=== PATIENT | male | born 1990 | race Hispanic/Latino ===

== ENCOUNTER 2019-07-14 21:05 | Emergency (ER) | payer SELFPAY ==
[2019-07-14 23:12] LABS: Basophils % (Auto) 0.9 % (0.0-1.8); Eosinophils % (Auto) 2.4 % (0.0-4.3); Lymphocytes % (Auto) 25.6 % (13.4-35.0); Monocytes % (Auto) 7.4 % (0.0-7.3)
[2019-07-14 23:28] LABS: BUN/Creatinine Ratio 12; Blood Urea Nitrogen 13 mg/dL (9-20); Calcium 9.5 mg/dL (8.4-10.2); Hemolysis Index 33
[2019-07-14 23:29] LABS: Basophils # (Auto) 0.1 K/mm3 (0.0-0.1); Eosinophils # (Auto) 0.3 K/mm3 (0.0-0.4); Hematocrit 44.7 % (35.5-45.6); Hemoglobin 14.7 gm/dl (11.8-15.2); Lymphocytes # (Auto) 2.7 K/mm3 (1.2-5.4); Mean Corpuscular HGB Conc 33 % (32-34); Mean Corpuscular Volume 84 fl (84-94); Monocytes # (Auto) 0.8 K/mm3 (0.0-0.8); Platelet Count 195 K/mm3 (140-440); Red Blood Count 5.31 M/mm3 (3.65-5.03); Red Cell Distribution Width 13.3 % (13.2-15.2)
[2019-07-15 00:18] LABS: Mucus,Urine 2+ /HPF
[2019-07-15 00:24] LABS: Bilirubin,Urine NEG (Negative); Blood,Urine NEG (Negative); Color,Urine Yellow (Yellow); Protein,Urine <15 mg/dL mg/dL (Negative); Urobilinogen,Urine < 2.0 mg/dL (<2.0)
[2019-07-15 00:25] LABS: Amphetamine Screen,Urine PRESUMPTIVE NEGATIVE; Benzodiazepines Screen,Urine PRESUMPTIVE NEGATIVE; Cocaine Screen,Urine PRESUMPTIVE NEGATIVE; Methadone Screen,Urine PRESUMPTIVE NEGATIVE; Opiate Screen,Urine PRESUMPTIVE NEGATIVE
[2019-07-15 00:58] LABS: Cannabinoid Screen,Urine PRESUMPTIVE POSITIVE
--- NOTE | 2019-07-15 01:34 | Emergency Department Report ---
ED Psych HPI - General Chief Complaint: Psych Stated Complaint: MH EVALUATION Time Seen by Provider: 07/14/19 23:27 Source: patient Mode of arrival: Ambulatory - History of Present Illness Initial Comments: Patient is a 29-year-old male who is presenting with suicidal i deations. Patient states that that he has a history of being bipolar and has been off of his medication for approximately 1 month. He has a history of taking lithium. Patient states he is now having suicidal thoughts but does not have a definitive plan. Patient states he came to the emergency department seeking help. He denies any homicidal ideations auditory or visual hallucinations. MD Complaint: suicidal ideation - Related Data Previous Rx's Medication Instructions Recorded Last Taken Type FLUoxetine [PROzac] 20 mg PO QDAY #30 capsule 07/17/19 Unknown Rx [place] Carbonate ER [Lithobid ER] 300 mg PO BID #90 tablet 07/17/19 Unknown Rx Melatonin [Melatonin 5MG TAB] 10 mg PO QHS #14 tablet 07/17/19 Unknown Rx traZODone [Desyrel] 50 mg PO QHS #30 tablet 07/17/19 Unknown Rx Allergies Allergy/AdvReac Type Severity Reaction Status Date / Time vancomycin Allergy Anaphylaxis Verified 07/14/19 21:21 ED Review of Systems ROS: Stated complaint: MH EVALUATION Other details as noted in HPI Comment: All other systems reviewed and negative ED Past Medical Hx - Past Medical History Previous Medical History?: Yes Hx Psychiatric Treatment: Yes (bipolar 1, PTSD, ADULT ONSET ADHD) - Surgical History Past Surgical History?: Yes Additional Surgical History: UNDECENDED TESTICLE, SPINAL STENOSIS - Social History Smoking Status: Current Every Day Smoker Substance Use Type: None - Medications Home Medications: Home Medications Medication Instructions Recorded Confirmed Last Taken Type FLUoxetine [PROzac] 20 mg PO QDAY #30 capsule 07/17/19 Unknown Rx [place] Carbonate ER [Lithobid ER] 300 mg PO BID #90 tablet 07/17/19 Unknown Rx Melatonin [Melatonin 5MG TAB] 10 mg PO QHS #14 tablet 07/17/19 Unknown Rx traZODone [Desyrel] 50 mg PO QHS #30 tablet 07/17/19 Unknown Rx ED Physical Exam - General Limitations: No Limitations General appearance: alert, in no apparent distress - Head Head exam: Present: atraumatic, normocephalic - Eye Eye exam: Present: normal appearance, PERRL, EOMI - ENT ENT exam: Present: mucous membranes moist - Neck Neck exam: Present: normal inspection - Respiratory Respiratory exam: Present: normal lung sounds bilaterally. Absent: respiratory distress, wheezes, rales, rhonchi - Cardiovascular Cardiovascular Exam: Present: regular rate, normal rhythm, normal heart sounds. Absent: systolic murmur, diastolic murmur, rubs, gallop - GI/Abdominal GI/Abdominal exam: Present: soft, normal bowel sounds. Absent: distended, tenderness, guarding - Rectal Rectal exam: Present: deferred - Extremities Exam Extremities exam: Present: normal inspection - Back Exam Back exam: Present: normal inspection - Neurological Exam Neurological exam: Present: alert, oriented X3 - Psychiatric Psychiatric exam: Present: normal affect, normal mood - Skin Skin exam: Present: warm, dry, intact, normal color. Absent: rash ED Course Vital Signs 07/14/19 07/14/19 07/15/19 21:22 21:24 01:49 Temperature 98.4 F 98.4 F 98.4 F Pulse Rate 108 H 107 H 82 Respiratory 16 18 18 Rate Blood Pressure 131/87 131/87 Blood Pressure 116/61 [Left] O2 Sat by Pulse 96 97 96 Oximetry 07/15/19 07/15/19 07/15/19 08:00 09:38 14:37 Temperature 97.8 F 97.0 F L 98.3 F Pulse Rate 66 66 64 Respiratory 20 20 20 Rate Blood Pressure 120/73 Blood Pressure 120/73 [Left] O2 Sat by Pulse 100 97 Oximetry 07/15/19 07/16/19 07/16/19 19:00 02:00 09:01 Temperature 98.8 F 98.1 F 97.5 F L Pulse Rate 63 69 53 L Respiratory 18 16 16 Rate Blood Pressure Blood Pressure 120/60 113/72 112/69 [Left] O2 Sat by Pulse 97 96 96 Oximetry 07/16/19 07/17/19 19:16 01:54 Temperature 98.8 F 97.9 F Pulse Rate 64 68 Respiratory 18 18 Rate Blood Pressure Blood Pressure 117/63 110/72 [Left] O2 Sat by Pulse 98 98 Oximetry - Reevaluation(s) Reevaluation #1: 07/15/19 01:34 Patient is placed on a mental health hold and will be seen by our mental health assessors in the morning Reevaluation #2: 07/21/19 17:32 BAUDILIO FUNG Male : 1990 MedRec# [id number] 07/15/19 09:50 - MH Outside Dealer Sales Representative's Note by GALINA SALAZAR Acct Num: [id number] : 1990 Patient Age: 29 Pt is a 29 yo AA male presenting to ED for MHE, as he reported he has been off meds for manic depression for about 6 weeks and thoughts of SI. During ax, pt presented as calm and cooperative, with lucid thought process. Pt is alert and oriented x 4. Pt stated, Im here for a psychiatric hold for manic depression. Pt reports that he has been coming off his psychiatric medication and is having suicidal urges, racing thoughts, anxiety and crippling depression. Pt reports a long hx of attempts; however, denies any hx of medical attention or IP tx for attempts. Pt stated, I have never been a 1013. Pt reports hx of connection to OP at [employer] in February. Pt denies having suicide plan, HI and A/V H. Pt reports needing following medication: [place] 400 mg daily, Prozac 40 mg, Vyvanse 40 mg. Pt reports homelessness, informing slubber hand that he has been sleeping in his car for approximately 1 year. Pt reports working at [employer] since February. Pt reports a decline in sleep and appetite. Pt reports marijuana use for pain. Recommendations: Outside Dealer Sales Representative briefed case with psychiatry, who is recommending starting medication 07/14 and possibly discharging 07/15, if safe. Initialized on 07/15/19 09:50 - END OF NOTE Reevaluation #3: 07/21/19 17:33 Psychiatry Progress Note Patient Name: BAUDILIO FUNG Date of : [birth year] Patient Status: Emergency Emergency Provider: GABBY BONILLA Date: 07/17/19 12:09 Initialization Date: 07/17/19 12:09 Subjective - Reason for Consult Consult date: 07/17/19 Reason for consult: MHE Requesting physician: GABBY BONILLA - Chief Complaint Chief complaint: HPI In my interview with the patient this morning, the patient reports mood as feeling better. Appetite is good and he has been sleeping well without disturbances. Patient denies current SI, HI, AH and VH, and contracts to seeking help if he feels this way. Pt does not have any complaints with current medications MENTAL STATUS EXAMINATION General Appearance and Behavior: Age appropriate, good hygiene, wearing appropriate clothes, lying in bed, good eye contact, cooperative with questioning and polite Cooperation: Participating/engaged Psychomotor Behavior: unremarkable and within normal limits Mood: Depressed Affect and affective range: depressed and sad Thought Process: Fluent/Logical Thought Content: Within reality Speech: Normal volume, Regular rate and rhythm Intellectual Functioning: Average Suicidal Ideation: Suicidal Homicidal Ideation: Denies HI Impulse Control: Unimpaired Insight and Judgment: Normal insight and judgment Memory: Normal Attention: Normal Orientation: Alert, oriented Assessment and Plan - Psychiatric problem (1) MDD (major depressive disorder), recurrent episode, severe Current Visit: Yes Status: Acute (2) Bipolar 1 disorder, depressed, severe Current Visit: Yes Status: Acute (3) PTSD (post-traumatic stress disorder) Current Visit: Yes Status: Acute (4) Nonadherence to medication Current Visit: Yes Status: Acute RECOMMENDATIONS TO discharge home with safety plan MEDICATIONS: Will restart home meds Risks, benefits and alternatives of medications discussed with the patient, questions answered and consent obtained from patient. PSYCHOTHERAPY: Supportive psychotherapy provided MEDICAL: Per primary team DELIRIUM PRECAUTIONS: Please re-orient patient frequently, keep lights on during the day, and minimize benzodiazepines and opiates as these medications could worsen patient's confusion. IN HOME NANNY: Per Medical Team DISPOSITION: TO discharge home with safety plan LEGAL STATUS: 1013 rescinded FOLLOW-UP: Will Sign off Thank you for the consult. Please contact with any questions and/or concerns. ED Medical Decision Making - Lab Data Result diagrams: 07/14/19 22:36 07/14/19 22:36 Lab Results 07/14/19 07/14/19 07/14/19 Range/Units 00:09 22:35 22:36 WBC (4.5-11.0) K/mm3 RBC (3.65-5.03) M/mm3 Hgb (11.8-15.2) gm/dl Hct (35.5-45.6) % MCV (84-94) fl MCH (28-32) pg MCHC (32-34) % RDW (13.2-15.2) % Plt Count (140-440) K/mm3 Lymph % (Auto) (13.4-35.0) % [place] % (Auto) (0.0-7.3) % Eos % (Auto) (0.0-4.3) % Baso % (Auto) (0.0-1.8) % Lymph # (1.2-5.4) K/mm3 [place] # (0.0-0.8) K/mm3 Eos # (0.0-0.4) K/mm3 Baso # (0.0-0.1) K/mm3 Seg Neutrophils % (40.0-70.0) % Seg Neutrophils # (1.8-7.7) K/mm3 Sodium (137-145) mmol/L Potassium (3.6-5.0) mmol/L Chloride (98-107) mmol/L Carbon Dioxide (22-30) mmol/L Anion Gap mmol/L BUN (9-20) mg/dL Creatinine (0.8-1.5) mg/dL Estimated GFR ml/min BUN/Creatinine Ratio % Glucose (75-100) mg/dL Calcium (8.4-10.2) mg/dL Urine Color Yellow (Yellow) Urine Turbidity Clear (Clear) Urine pH 6.0 (5.0-7.0) Ur Specific [place] 1.020 (1.003-1.030) Urine Protein <15 mg/dl (Negative) mg/dL Urine Glucose (UA) Neg (Negative) mg/dL Urine Ketones Neg (Negative) mg/dL Urine Blood Neg (Negative) Urine Nitrite Neg (Negative) Ur Reducing Substances Not Reportable Urine Bilirubin Neg (Negative) Urine Ictotest Not Reportable Urine Urobilinogen < 2.0 (<2.0) mg/dL Ur Leukocyte Esterase Neg (Negative) Urine WBC (Auto) 1.0 (0.0-6.0) /HPF Urine RBC (Auto) 3.0 (0.0-6.0) /HPF U Epithel Cells (Auto) < 1.0 (0-13.0) /HPF Urine Mucus 2+ /HPF Salicylates < 0.3 L (2.8-20.0) mg/dL Urine Opiates Screen Urine Methadone Screen Acetaminophen < 5.0 L (10.0-30.0) ug/mL Ur Barbiturates Screen Ur Phencyclidine Scrn Ur Amphetamines Screen U Benzodiazepines Scrn Urine Cocaine Screen U Marijuana (THC) Screen Drugs of Abuse Note Plasma/Serum Alcohol (0-0.07) % 07/14/19 07/14/19 07/14/19 Range/Units 22:36 22:36 22:36 WBC 10.7 (4.5-11.0) K/mm3 RBC 5.31 H (3.65-5.03) M/mm3 Hgb 14.7 (11.8-15.2) gm/dl Hct 44.7 (35.5-45.6) % MCV 84 (84-94) fl MCH 28 (28-32) pg MCHC 33 (32-34) % RDW 13.3 (13.2-15.2) % Plt Count 195 (140-440) K/mm3 Lymph % (Auto) 25.6 (13.4-35.0) % [place] % (Auto) 7.4 H (0.0-7.3) % Eos % (Auto) 2.4 (0.0-4.3) % Baso % (Auto) 0.9 (0.0-1.8) % Lymph # 2.7 (1.2-5.4) K/mm3 [place] # 0.8 (0.0-0.8) K/mm3 Eos # 0.3 (0.0-0.4) K/mm3 Baso # 0.1 (0.0-0.1) K/mm3 Seg Neutrophils % 63.7 (40.0-70.0) % Seg Neutrophils # 6.9 (1.8-7.7) K/mm3 Sodium 142 (137-145) mmol/L Potassium 4.3 (3.6-5.0) mmol/L Chloride 101.6 (98-107) mmol/L Carbon Dioxide 27 (22-30) mmol/L Anion Gap 18 mmol/L BUN 13 (9-20) mg/dL Creatinine 1.1 (0.8-1.5) mg/dL Estimated GFR > 60 ml/min BUN/Creatinine Ratio 12 % Glucose 107 H (75-100) mg/dL Calcium 9.5 (8.4-10.2) mg/dL Urine Color (Yellow) Urine Turbidity (Clear) Urine pH (5.0-7.0) Ur Specific [place] (1.003-1.030) Urine Protein (Negative) mg/dL Urine Glucose (UA) (Negative) mg/dL Urine Ketones (Negative) mg/dL Urine Blood (Negative) Urine Nitrite (Negative) Ur Reducing Substances Urine Bilirubin (Negative) Urine Ictotest Urine Urobilinogen (<2.0) mg/dL Ur Leukocyte Esterase (Negative) Urine WBC (Auto) (0.0-6.0) /HPF Urine RBC (Auto) (0.0-6.0) /HPF U Epithel Cells (Auto) (0-13.0) /HPF Urine Mucus /HPF Salicylates (2.8-20.0) mg/dL Urine Opiates Screen Urine Methadone Screen Acetaminophen (10.0-30.0) ug/mL Ur Barbiturates Screen Ur Phencyclidine Scrn Ur Amphetamines Screen U Benzodiazepines Scrn Urine Cocaine Screen U Marijuana (THC) Screen Drugs of Abuse Note Plasma/Serum Alcohol < 0.01 (0-0.07) % 07/15/19 Range/Units 00:09 WBC (4.5-11.0) K/mm3 RBC (3.65-5.03) M/mm3 Hgb (11.8-15.2) gm/dl Hct (35.5-45.6) % MCV (84-94) fl MCH (28-32) pg MCHC (32-34) % RDW (13.2-15.2) % Plt Count (140-440) K/mm3 Lymph % (Auto) (13.4-35.0) % [place] % (Auto) (0.0-7.3) % Eos % (Auto) (0.0-4.3) % Baso % (Auto) (0.0-1.8) % Lymph # (1.2-5.4) K/mm3 [place] # (0.0-0.8) K/mm3 Eos # (0.0-0.4) K/mm3 Baso # (0.0-0.1) K/mm3 Seg Neutrophils % (40.0-70.0) % Seg Neutrophils # (1.8-7.7) K/mm3 Sodium (137-145) mmol/L Potassium (3.6-5.0) mmol/L Chloride (98-107) mmol/L Carbon Dioxide (22-30) mmol/L Anion Gap mmol/L BUN (9-20) mg/dL Creatinine (0.8-1.5) mg/dL Estimated GFR ml/min BUN/Creatinine Ratio % Glucose (75-100) mg/dL Calcium (8.4-10.2) mg/dL Urine Color (Yellow) Urine Turbidity (Clear) Urine pH (5.0-7.0) Ur Specific [place] (1.003-1.030) Urine Protein (Negative) mg/dL Urine Glucose (UA) (Negative) mg/dL Urine Ketones (Negative) mg/dL Urine Blood (Negative) Urine Nitrite (Negative) Ur Reducing Substances Urine Bilirubin (Negative) Urine Ictotest Urine Urobilinogen (<2.0) mg/dL Ur Leukocyte Esterase (Negative) Urine WBC (Auto) (0.0-6.0) /HPF Urine RBC (Auto) (0.0-6.0) /HPF U Epithel Cells (Auto) (0-13.0) /HPF Urine Mucus /HPF Salicylates (2.8-20.0) mg/dL Urine Opiates Screen Presumptive negative Urine Methadone Screen Presumptive negative Acetaminophen (10.0-30.0) ug/mL Ur Barbiturates Screen Presumptive negative Ur Phencyclidine Scrn Presumptive negative Ur Amphetamines Screen Presumptive negative U Benzodiazepines Scrn Presumptive negative Urine Cocaine Screen Presumptive negative U Marijuana (THC) Screen Presumptive positive Drugs of Abuse Note Disclamer Plasma/Serum Alcohol (0-0.07) % Critical care attestation.: If time is entered above; I have spent that time in minutes in the direct care of this critically ill patient, excluding procedure time. ED Disposition Clinical Impression: MDD (major depressive disorder), recurrent episode, severe, Bipolar 1 disorder, depressed, severe, PTSD (post-traumatic stress disorder), Nonadherence to medication Disposition: DC-01 TO HOME OR SELFCARE Is pt being admited?: No Does the pt Need Aspirin: No Condition: Stable Additional Instructions: Referral: Outpatient [facility] Behavioral Health Resources: [facility] Service Address: [facility] [address], [place] [address] [facility] [address] [address] / [phone] Sunday thru Sunday - 8am - 5pm CRISIS RESOURCES [place] Crisis Line: Suicide Prevention Line: Crisis Text Line: Text START to [phone] Emergency: 911 Prescriptions: traZODone [Desyrel] 50 mg PO QHS #30 tablet Melatonin [Melatonin 5MG TAB] 10 mg PO QHS #14 tablet [place] Carbonate ER [Lithobid ER] 300 mg PO BID #90 tablet FLUoxetine [PROzac] 20 mg PO QDAY #30 capsule Referrals: PRIMARY CARE, [Primary Care Provider] - 3-5 Days
[2019-07-15] MEDS: FLUoxetine 20 MG CAP PO SCH (12:17)
[2019-07-15] MEDS: LITHIUM CARBONATE ER 300 MG TAB PO SCH ×2 (12:17→22:37)
[2019-07-15] MEDS: traZODone 50 MG TAB PO SCH (22:37)
[2019-07-16] MEDS: FLUoxetine 20 MG CAP PO SCH (10:58)
[2019-07-16] MEDS: LITHIUM CARBONATE ER 300 MG TAB PO SCH ×2 (10:58→21:35)
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
[2019-07-16] MEDS: traZODone 50 MG TAB PO SCH (21:34)
[2019-07-16] MEDS ORDERED: MELATONIN 5 MG TAB PO SCH (22:00)
[2019-07-17 01:55] VITALS: BP 110/72
[2019-07-17] MEDS: FLUoxetine 20 MG CAP PO SCH (11:00)
[2019-07-17] MEDS: LITHIUM CARBONATE ER 300 MG TAB PO SCH (11:00)
--- NOTE | 2019-07-17 12:09 | Progress Note ---
Subjective - Reason for Consult Consult date: 07/17/19 Reason for consult: MHE Requesting physician: GABBY BONILLA - Chief Complaint Chief complaint: HPI In my interview with the patient this morning, the patient reports mood as fe eling better. Appetite is good and he has been sleeping well without disturbances. Patient denies current SI, HI, AH and VH, and contracts to seeking help if he feels this way. Pt does not have any complaints with current medications MENTAL STATUS EXAMINATION General Appearance and Behavior: Age appropriate, good hygiene, wearing appropriate clothes, lying in bed, good eye contact, cooperative with questioning and polite Cooperation: Participating/engaged Psychomotor Behavior: unremarkable and within normal limits Mood: Depressed Affect and affective range: depressed and sad Thought Process: Fluent/Logical Thought Content: Within reality Speech: Normal volume, Regular rate and rhythm Intellectual Functioning: Average Suicidal Ideation: Suicidal Homicidal Ideation: Denies HI Impulse Control: Unimpaired Insight and Judgment: Normal insight and judgment Memory: Normal Attention: Normal Orientation: Alert, oriented Assessment and Plan - Psychiatric problem (1) MDD (major depressive disorder), recurrent episode, severe Current Visit: Yes Status: Acute (2) Bipolar 1 disorder, depressed, severe Current Visit: Yes Status: Acute (3) PTSD (post-traumatic stress disorder) Current Visit: Yes Status: Acute (4) Nonadherence to medication Current Visit: Yes Status: Acute RECOMMENDATIONS TO discharge home with safety plan MEDICATIONS: Will restart home meds Risks, benefits and alternatives of medications discussed with the patient, questions answered and consent obtained from patient. PSYCHOTHERAPY: Supportive psychotherapy provided MEDICAL: Per primary team DELIRIUM PRECAUTIONS: Please re-orient patient frequently, keep lights on during the day, and minimize benzodiazepines and opiates as these medications could worsen patient's confusion. 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 Please contact with any questions and/or concerns. Mental Status Exam - Vital signs Last Vital Signs Temp 97.9 F 07/17/19 01:54 Pulse 68 07/17/19 01:54 Resp 18 07/17/19 01:54 BP 110/72 07/17/19 01:54 Pulse Ox 98 07/17/19 01:54 Assessment and Plan - Patient Problems (1) MDD (major depressive disorder), recurrent episode, severe Current Visit: Yes Status: Acute (2) Bipolar 1 disorder, depressed, severe Current Visit: Yes Status: Acute (3) PTSD (post-traumatic stress disorder) Current Visit: Yes Status: Acute (4) Nonadherence to medication Current Visit: Yes Status: Acute
== END 2019-07-17 13:00 | disposition home or self-care (01) ==
LOC: ED 21:05 → EEVIPCON 21:05 → ED 07-17 13:00
DX: R45.851 Suicidal ideations (principal); F31.9 Bipolar disorder, unspecified; F17.200 Nicotine dependence, unspecified, uncomplicated
CPT/HCPCS: 36415; 80048; 80178; 80307; 80320; 81001; 85025; G0480